=== PATIENT | female | born 1940 | race American Indian/Alaskan Native ===

== ENCOUNTER 2017-03-19 11:10 | Emergency (ER) | payer MEDICARE, OTHER ==
--- NOTE | 2017-03-19 14:18 | ED PDOC ---
Arrival/HPI - General Chief Complaint: Upper Extremity Problem/Injury Time Seen by Provider: 03/19/17 14:13 Historian: Patient - History of Present Illness Narrative History of Present Illness (Text): 03/19/17 14:15 76-year-old female presents today with right sided pain has been ongoing since 2016. Patient claims that in 2016 she had a fall injuring her shoulder and side. Patient states she has had surgery on her shoulder and is still having pain and swelling to the shoulder, ribs, abdomen. no cp or sob. no vomiting/ diarrhea. pt states over the past 3-4 days she noticed a new pain along the anterior aspect of the chest. pt c/o right sided abdominal pain. denies urinary symptoms. no medications taken for pain at home. pt denies dizziness or weakness. no other complaints. Time/Duration: Other (4 days) Quality: Pressure, Tightness Severity Level: 4 Past Medical History - Provider Review Nursing Documentation Reviewed: Yes - Travel History Have you recently traveled outside [place] w/in the past 3 mons?: No - Tetanus Immunization Tetanus Immunization: Unknown - Cardiac Hx Hypertension: Yes - Endocrine/Metabolic Hx Diabetes Mellitus Type 1: Yes - Psychiatric Hx Substance Use: No Family/Social History - Physician Review Nursing Documentation Reviewed: Yes Family/Social History: Unknown Family HX Smoking Status: Never Smoked Hx Alcohol Use: No Hx Substance Use: No Allergies/Home Meds Allergies/Adverse Reactions: Allergies No Known Allergies Allergy (Verified 03/19/17 14:02) Home Medications: Home Meds Medication Instructions Recorded Confirmed Carvedilol [Coreg] 03/19/17 Gabapentin [Neurontin] 400 mg PO 03/19/17 GlipiZIDE [Glucotrol] 03/19/17 Nisoldipine 20 mg PO 03/19/17 Review of Systems - Review of Systems Constitutional: absent: Fatigue, Fevers Respiratory: absent: SOB, Cough Cardiovascular: Chest Pain. absent: Palpitations Gastrointestinal: Abdominal Pain. absent: Constipation, Diarrhea, Nausea, Vomiting Genitourinary Female: absent: Dysuria, Frequency, Hematuria Musculoskeletal: absent: Arthralgias Skin: absent: Rash, Pruritis Neurological: absent: Headache, Dizziness Psychiatric: absent: Anxiety, Depression Physical Exam Vital Signs Reviewed: Yes Vital Signs Temp Pulse Resp BP Pulse Ox 03/19/17 19:03 71 18 125/69 97 03/19/17 16:00 98.0 F 75 18 127/73 97 Temperature: Afebrile Blood Pressure: Normal Pulse: Regular Respiratory Rate: Normal Appearance: Positive for: Well-Appearing, Non-Toxic, Comfortable Pain Distress: None Mental Status: Positive for: Alert and Oriented X 3 - Systems Exam Head: Present: Atraumatic Mouth: Present: Moist Mucous Membranes Nose (Internal): Present: Normal Inspection Neck: Present: Normal Range of Motion Respiratory/Chest: Present: Clear to Auscultation, Good Air Exchange. No: Respiratory Distress, Accessory Muscle Use, Wheezes, Rhonchi, Tachypneic Cardiovascular: Present: Regular Rate and Rhythm. No: Murmurs Abdomen: Present: Tenderness (+ right sided upper abd tenderness), Normal Bowel Sounds. No: Distention, Peritoneal Signs, Rebound, Guarding Back: Present: Normal Inspection, Paraspinal Tenderness (right sided thoracic paraspinal tenderness). No: CVA Tenderness, Midline Tenderness Upper Extremity: Present: Normal ROM, NORMAL PULSES, Tenderness (right shoulder ; + ttp over anterior aspect of shoulder; ), Neurovascularly Intact. No: Erythema Neurological: Present: GCS=15, Speech Normal Skin: Present: Warm, Dry, Normal Color. No: Rashes Psychiatric: Present: Alert, Oriented x 3 Medical Decision Making ED Course and Treatment: 03/19/17 21:07 pt with chest pain x 4 days; vitals stable cbc; wnl cmp; wnl trop: wnl ekg; sinus bradycardia with first-degree AV block at [address] elevations QTC 405 cxr no infiltrate. no effusion UA; + leukocytes, CT abd/pelvis; FINDINGS: LOWER THORAX: Unremarkable. LIVER: 1.2 centimeter low-attenuation lesion at the mid liver dome image 40 series 3 not fully characterized in this noncontrast study. The liver is mildly enlarged. GALLBLADDER AND BILE DUCTS: No evidence of acute cholecystitis. The biliary tree is not dilated. PANCREAS: Unremarkable. No gross lesion or ductal dilatation. SPLEEN: Unremarkable. ADRENALS: Unremarkable. No mass. KIDNEYS AND URETERS: Unremarkable. No hydronephrosis. No solid mass. VASCULATURE: Unremarkable. No aortic aneurysm. BOWEL: Colonic diverticulosis are noted without evidence of diverticulitis. No evidence of bowel obstruction. APPENDIX: Unremarkable. Normal appendix. PERITONEUM: Unremarkable. No free fluid. No free air. LYMPH NODES: Unremarkable. No enlarged lymph nodes. BLADDER: The bladder is not distended therefore cannot be fully evaluated in this study. REPRODUCTIVE: The uterus is slightly prominent in size for the patient's age may contains fibroids. BONES: No acute fracture. OTHER FINDINGS: Small bilateral fat containing inguinal hernias larger on the left. IMPRESSION: No evidence of cholecystitis, appendicitis or pancreatitis. No evidence of nephrolithiasis or hydronephrosis. Colonic diverticulosis without evidence of diverticulitis. 1.2 centimeter low-attenuation lesion at the right liver lobe not fully characterized in this noncontrast study. If indicated further assessment by ultrasound may be obtained. asa po tramadol given for pain rocephin given for UTI pt reassessment; pt non toxic well appearing; no distress. stable vitals. case discussed with Dr. treadwell; accepts admission will Admit observational status to Tele for chest pain r/o acs. impression; chest pain, abdominal pain, UTI Admit observational status to tele; Dr. treadwell - Lab Interpretations Lab Results: 03/19/17 15:33 03/19/17 15:33 Lab Results 03/19/17 16:48: Urine Color Yellow, Urine Appearance Turbid, Urine pH 5.5, Ur Specific [place] >= 1.030, Urine Protein Negative, Urine Glucose (UA) Negative, Urine Ketones Trace H, Urine Blood Negative, Urine Nitrate Negative, Urine Bilirubin Negative, Urine Urobilinogen 0.2, Ur Leukocyte Esterase Small H, Urine RBC Negative, Urine WBC 10 - 15, Ur Epithelial Cells 10 - 12, Urine Bacteria Few 03/19/17 15:33: WBC 8.5, RBC 4.28, Hgb 12.0, Hct 37.9, MCV 88.6, MCH 28.0, MCHC 31.7, RDW 13.7, Plt Count 191, MPV 10.8, Gran % 52.6, Lymph % (Auto) 38.2 H, [place] % (Auto) 5.4, Eos % (Auto) 3.4, Baso % (Auto) 0.4, Gran # 4.45, Lymph # ( Auto) 3.2, [place] # (Auto) 0.5, Eos # (Auto) 0.3, Baso # (Auto) 0.03 03/19/17 15:33: Sodium 144, Potassium 4.2, Chloride 104, Carbon Dioxide 31, Anion Gap 14, BUN 15, Creatinine 0.9, Est GFR ( Amer) > 60, Est GFR (Non- Af Amer) > 60, Random Glucose 175 H, Calcium 10.3, Total Bilirubin 0.2, AST 24, ALT 28, Alkaline Phosphatase 67, Lactate Dehydrogenase 398, Total Creatine Kinase 57, Troponin I < 0.01, Total Protein 6.7, Albumin 3.8, Globulin 2.9, Albumin/Globulin Ratio 1.3 - RAD Interpretation Radiology Orders: 03/19/17 14:50 ABD & PELVIS W/O PO OR IV CONT [CT] Stat CHEST TWO VIEWS (PA/LAT) [RAD] Stat - Medication Orders Current Medication Orders: Discontinued Medications Aspirin (Aspirin) 325 mg PO STAT STA Stop: 03/19/17 17:48 Last Admin: 03/19/17 18:42 Dose: 325 mg Tramadol HCl (Ultram) 50 mg PO STAT STA Stop: 03/19/17 19:04 Last Admin: 03/19/17 19:22 Dose: 50 mg [facility] Pain Assessment Document 03/19/17 19:22 [place] (Rec: 03/19/17 19:23 [place] [facility] [id number] Pain Reassessment Is this a pain reassessment? No Sleep Is patient sleeping during reassessment? No Presence of Pain Presence of Pain No Pain Scale Used Pain Scale Used Numeric Location Pain Location Body Site Back Description Intensity of Pain at present 5 Disposition/Present on Arrival - Present on Arrival Any Indicators Present on Arrival: No History of DVT/PE: No History of Uncontrolled Diabetes: No Urinary Catheter: No History of Decub. Ulcer: No History Surgical Site Infection Following: None - Disposition Have Diagnosis and Disposition been Completed?: Yes Diagnosis: Chest pain, Abdominal pain, UTI (urinary tract infection) Disposition: HOSPITALIZED Disposition Time: 17:00 Patient Plan: Observation Condition: FAIR Discharge Instructions (ExitCare): Chest Pain (ED) Forms: [employer] (Portuguese)
[2017-03-19 15:50] LABS: BASO # 0.03 K/mm3 (0.0-2.0); BASO % 0.4 % (0.0-3.0); EOS # 0.3 (0.0-0.7); EOS % 3.4 % (1.5-5.0); GRAN # 4.45 (1.4-6.5); GRAN % 52.6 % (50.0-68.0); LYMPH # 3.2 (1.2-3.4); LYMPH % 38.2 % (22.0-35.0); MEAN CELL VOLUME 88.6 fl (80.0-105.0); MEAN CORPUSCULAR HGB CONC 31.7 g/dl (31.0-37.0); MEAN PLATELET VOLUME 10.8 fl (7.0-11.0); MONO # 0.5 (0.1-0.6); MONO % 5.4 % (1.0-6.0); RBC 4.28 10^6/uL (3.5-6.1); RED CELL DISTRIBUTION WIDTH 13.7 % (11.5-14.5); WHITE BLOOD COUNT 8.5 10^3/ul (4.5-11.0)
[2017-03-19 16:01] LABS: ALB/GLOB RATIO 1.3 (1.1-1.8); ALBUMIN 3.8 g/dL (3.0-4.8); ALT/SGPT 28 U/L (7-56); AST/SGOT 24 U/L (14-36); BLOOD UREA NITROGEN 15 mg/dL (7-21); CALCIUM 10.3 mg/dL (8.4-10.5); GFR AFRICAN-AMERICAN > 60; GFR NON-AFRICAN AMERICAN > 60
[2017-03-19 16:12] LABS: TROPONIN I < 0.01 ng/mL
--- NOTE | 2017-03-19 16:50 | CT ---
PROCEDURE: CT Abdomen and Pelvis without intravenous contrast HISTORY: upper/right sided abdominal pain COMPARISON: None. TECHNIQUE: Axial and reformatted coronal and sagittal CT images of the abdomen and pelvis were obtained without IV or oral contrast administration.. Contrast Dose: 0 Radiation dose: Total exam DLP = 1083.68 mGy-cm. This CT exam was performed using one or more of the following dose reduction techniques: Automated exposure control, adjustment of the mA and/or kV according to patient size, and/or use of iterative reconstruction technique. FINDINGS: LOWER THORAX: Unremarkable. LIVER: 1.2 centimeter low-attenuation lesion at the mid liver dome image 40 series 3 not fully characterized in this noncontrast study. The liver is mildly enlarged. GALLBLADDER AND BILE DUCTS: No evidence of acute cholecystitis. The biliary tree is not dilated. PANCREAS: Unremarkable. No gross lesion or ductal dilatation. SPLEEN: Unremarkable. ADRENALS: Unremarkable. No mass. KIDNEYS AND URETERS: Unremarkable. No hydronephrosis. No solid mass. VASCULATURE: Unremarkable. No aortic aneurysm. BOWEL: Colonic diverticulosis are noted without evidence of diverticulitis. No evidence of bowel obstruction. APPENDIX: Unremarkable. Normal appendix. PERITONEUM: Unremarkable. No free fluid. No free air. LYMPH NODES: Unremarkable. No enlarged lymph nodes. BLADDER: The bladder is not distended therefore cannot be fully evaluated in this study. REPRODUCTIVE: The uterus is slightly prominent in size for the patient's age may contains fibroids. BONES: No acute fracture. OTHER FINDINGS: Small bilateral fat containing inguinal hernias larger on the left. IMPRESSION: No evidence of cholecystitis, appendicitis or pancreatitis. No evidence of nephrolithiasis or hydronephrosis. Colonic diverticulosis without evidence of diverticulitis. 1.2 centimeter low-attenuation lesion at the right liver lobe not fully characterized in this noncontrast study. If indicated further assessment by ultrasound may be obtained.
[2017-03-19 17:00] LABS: PH,URINE 5.5 (4.7-8.0); URINE BILIRUBIN NEGATIVE (NEGATIVE); URINE BLOOD NEGATIVE (NEGATIVE); URINE GLUCOSE (UA) NEGATIVE (NEGATIVE); URINE LEUKOCYTE ESTERASE SMALL Leu/uL (NEGATIVE); URINE NITRATE NEGATIVE (NEGATIVE); URINE PROTEIN NEGATIVE mg/dL (<30 mg/dL); URINE UROBILINOGEN 0.2 E.U./dL (<1 E.U./dL)
[2017-03-19 17:02] LABS: URINE APPEARANCE TURBID (CLEAR); URINE COLOR YELLOW (YELLOW)
[2017-03-19 17:06] LABS: URINE BACTERIA FEW (NEG); URINE RBC NEGATIVE /hpf (0-2)
--- NOTE | 2017-03-19 18:23 | RAD ---
HISTORY: Chest pain. COMPARISON: No prior. TECHNIQUE: Chest PA and lateral FINDINGS: LUNGS: No active pulmonary disease. PLEURA: No significant pleural effusion identified. No pneumothorax apparent. CARDIOVASCULAR: No radiographic findings to suggest acute or significant cardiovascular disease. OSSEOUS STRUCTURES: No significant abnormalities. VISUALIZED UPPER ABDOMEN: Normal. OTHER FINDINGS: None. IMPRESSION: No active disease.
[2017-03-19] MEDS ORDERED: cefTRIAXone 1 gm 1 GM/100 ML BAG IVPB STA (21:05)
[2017-03-20 08:56] VITALS: BP 153/70; PULSE 59; RESP 18; TEMP 98; O2SAT 99
[2017-03-20 09:04] LABS: HDL CHOLESTEROL 49 mg/dL (29-60)
[2017-03-20 09:15] LABS: LDL CHOLESTEROL 116 mg/dL (0-129)
[2017-03-20 09:56] LABS: TROPONIN I < 0.01 ng/mL
[2017-03-20] MEDS ORDERED: Lidocaine 5% Patch TD SCH (10:00)
--- NOTE | 2017-03-20 10:02 | CARD ---
APPROVED REPORT EKG Measurement Heart [id number] <Conclusion> Sinus bradycardia with 1st degree AV block NSSTW changes
--- NOTE | 2017-03-20 11:38 | US ---
HISTORY: Abnormal CT COMPARISON: CT abdomen and pelvis from 03/19/2017 TECHNIQUE: Sonographic evaluation of the abdomen. FINDINGS: LIVER: Measures 15.8 cm. Normal echogenicity of the liver parenchyma. There is a 1.4 x 1.3 x 1.3 cm simple cyst in the right hepatic lobe. . No intrahepatic bile duct dilatation. GALLBLADDER: There are no gallstones, wall thickening or pericholecystic fluid. COMMON BILE DUCT: Measures 6.3 mm. No stones. No dilatation. PANCREAS: Unremarkable as visualized. No mass. No ductal dilatation. RIGHT KIDNEY: Measures 9.2cm. Normal echogenicity. No calculus, mass, or hydronephrosis. LEFT KIDNEY: Measures 8.9cm. Normal echogenicity. No calculus, mass, or hydronephrosis. SPLEEN: Normal in size and contour. No mass. AORTA: No aneurysmal dilatation. IVC: Unremarkable. OTHER FINDINGS: None. IMPRESSION: 1. 1.4 cm simple cyst in the right hepatic lobe. 2. No cholelithiasis.
--- NOTE | 2017-03-20 12:25 | HP ---
The patient was seen and examined at the bedside on 03/19/2017. I am doing H and P for 03/19/2017. CHIEF COMPLAINT: Chest pain. HISTORY OF PRESENT ILLNESS: Ms. Leon Kerns is a 76-year-old female with past medical history of multiple problems, who came with right-sided chest pain since 2016, and patient claims that in 2016, she had a fall, injuring her right shoulder and side. Patient states that she had surgery on her shoulder and is still having pain and swelling on the shoulder, ribs, abdomen. No nausea, vomiting, or diarrhea. Now, past 3 to 4 days, she noted new pain along with anterior aspect of the chest. Patient is complaining of right-sided abdominal pain. No urinary symptoms. No dysuria. Denies dizziness or weakness. PAST MEDICAL HISTORY: As above, hypertension and diabetes mellitus type 1. FAMILY HISTORY: Father and mother noncontributory. HABITS: Never smoke. No drugs. No ethanol. ALLERGIES: PATIENT IS NOT ALLERGIC WITH ANY MEDICATIONS. HOME MEDICATIONS: Carvedilol, Neurontin, and Glucotrol. REVIEW OF SYSTEMS: The patient is seen and examined on the bedside, in the emergency room. No fatigue or fever. No nausea, vomiting, or diarrhea. No shortness of breath. No coughing. Having chest pain, but not palpitation. No constipation, diarrhea, nausea, or vomiting. No dysuria. No frequency. No hematuria. No arthralgia. No fever. No rash. No pruritus. No headache or dizziness. No anxiety or depression. PHYSICAL EXAMINATION: VITAL SIGNS: Temperature 98.0, pulse 75, respiratory rate 18, blood pressure 127/73, pulse oximetry 97%. HEENT: Head: Normocephalic and atraumatic. Eyes: PERRLA. Extraocular muscles intact. Conjunctivae clear. Nose patent. Mucous membrane moist. NECK: Supple. No carotid bruit. No JVD or thyromegaly. CHEST: Bilaterally symmetrical. HEART: S1, S2 positive. LUNGS: Clear to auscultation. ABDOMEN: Soft. Bowel sounds positive. No organomegaly. EXTREMITIES: No edema, no cyanosis. NEUROLOGIC: The patient is awake, alert. Moving all 4 extremities. No focal deficits. LABORATORY DATA: White blood cell is 8.5, hemoglobin 12.0, hematocrit 37.9, platelets 191. Sodium 144, potassium 4.2. BUN 15, creatinine 0.9. Glucose 175. ASSESSMENT AND PLAN: Ms. Leon Kerns is a 76-year-old lady with diabetes mellitus, hypertension, came with chest pain, abdominal pain, urinary tract infection, hypertension. CAT scan of the abdomen and pelvis done. According to radiologist, no evidence of cholecystitis, appendicitis, pancreatitis. No evidence of nephrolithiasis or hydronephrosis. The patient has chronic diverticulosis without evidence of diverticulitis. A1.2 cm low attenuation lesion in the right liver lobe. Can be assessed with ultrasound. We will do ultrasound. Chest x-ray is done. No active disease. We did cardiac enzymes x2, less than 0.01 x2. Ketones positive in the urine. Cardiology consult called with Dr. Iglesias. Patient is given aspirin, ceftriaxone, and tramadol in emergency. Discussion done with the emergency physician. Repeat labs. Mary Goss MD MTDEstephania
--- NOTE | 2017-03-20 22:01 | CON ---
DATE: REASON FOR CONSULTATION: Chest pain, cardiac evaluation, history of hypertension. BRIEF CLINICAL HISTORY: A 76-year-old obese female with a past medical history significant for hypertension for many years. She came in with sharp pain on the right side of the chest with tenderness and then whole right side of the body. Admitted here to rule out CAD. Patient is complaining of pain in upper abdomen, right side of the chest, right upper and lower extremity. History of right shoulder surgery; since then, patient gets pain off and on. PAST MEDICAL HISTORY: Significant for hypertension. SOCIAL HISTORY: Denies any history of alcohol abuse. CURRENT MEDICATION: Patient is taking Coreg CR 80 mg daily, enalapril 10 mg daily, Neurontin 400 mg daily and glipizide. REVIEW OF SYSTEMS: As per HPI. FAMILY HISTORY: Noncontributory. PHYSICAL EXAMINATION: VITAL SIGNS: Temperature afebrile, heart rate 59, blood pressure 153/70. HEENT: PERRLA. Extraocular muscles are intact. NECK: Supple. No carotid bruit or thyromegaly. CHEST: Clear to auscultation. HEART: S1 and S2, regular. ABDOMEN: Soft. EXTREMITIES: Clubbing and cyanosis negative. LABORATORY DATA: Blood workup as follows: WBC 8.5, hemoglobin 12, hematocrit 37.9, platelet count 191. Chemistry shows sodium 144, potassium 4.0, chloride of 104, carbon dioxide 31, anion gap of 15, . Troponin is 0.01, 0.01. Triglycerides 112, cholesterol 205, LDL 116, HDL 49. EKG shows normal sinus, first degree AV block. No acute ST-T wave changes noted. IMPRESSION AND PLAN: Atypical chest pain, musculoskeletal tenderness on the right side of the chest, diabetes mellitus, hypertension, hyperlipidemia, obesity. Given multiple risk factor for coronary artery disease, suggest stress test and echo as an outpatient. Arrangement has been made to have a stress test done as an outpatient in 1 week. Patient okay to be discharged. We will inform Dr. Goss. Thank you, Dr. Goss, for providing us the opportunity in taking care of Ms. Leon Madden. Sharon Justin MD
--- NOTE | 2017-03-21 23:51 | DS ---
CHIEF COMPLAINT: Chest pain. HISTORY OF PRESENT ILLNESS: Ms. Saumya Madden is a 76-year-old female with past medical history of multiple medical problems, came to the emergency room with right-sided chest pain and patient is complaining that she had a fall, injury in the right shoulder and right side. Patient states that she had surgery on her right shoulder and still having pain and swelling on the shoulder, ribs, and abdomen. No nausea, vomiting, or diarrhea. No hematuria or hematochezia. No swelling of the legs. Patient was admitted. CAT scan of the abdomen and pelvis done. Abdominal ultrasound was done. Seen by the insurance and benefits clerk, Dr. Iglesias and Dr. Justin, cleared for discharge and followup stress test as outpatient. Continue home medications. PAST MEDICAL HISTORY: As above, hypertension, diabetes mellitus type 1. FAMILY HISTORY: Father and mother, noncontributory. HABITS: No smoking. No drugs. No ethanol. ALLERGIES: PATIENT IS NOT ALLERGIC WITH ANY MEDICATION. HOME MEDICATIONS: Carvedilol, Neurontin, and Glucotrol. REVIEW OF SYSTEMS: Patient is seen and examined at the bedside on 03/20/2017, looking comfortable. Chest pain is better. Complaining of pain that is here and there in the shoulders, hips, like nonspecific for cardiac. Patient has arthritis. No hematuria or hematochezia. No fever. No chills. PHYSICAL EXAMINATION: VITAL SIGNS: Temperature 98, pulse 59, blood pressure 150/70, respiratory rate 18. HEENT: Head: Normocephalic and atraumatic. Eyes: PERRLA. Extraocular muscles intact. Conjunctivae clear. Nose patent. Mucous membrane moist. NECK: Supple. No carotid bruit. No JVD or thyromegaly. CHEST: Bilaterally symmetrical. HEART: S1 and S2, positive. LUNGS: Clear to auscultation. ABDOMEN: Soft. Bowel sounds present. No organomegaly. EXTREMITIES: No edema. No cyanosis. NEUROLOGIC: Patient is awake, alert. Moving all four extremities. No focal deficits. LABORATORY DATA: White blood cells 8.5, hemoglobin 12.0, hematocrit 37.9, platelets 191, glucose 234, 205. ASSESSMENT AND PLAN: Ms. Saumya Madden is a 76-year-old lady with hypercholesterolemia; hyperglycemia; diabetes mellitus, uncontrolled, hemoglobin A1c is 8.2; proteinuria; ketonuria. Patient has a history of hypertension, history of coronary artery disease, came with chest pain. According to insurance and benefits clerk, it looks like atypical chest pain, musculoskeletal on tenderness, history of diabetes mellitus uncontrolled, hemoglobin A1c is high. There were multiple risk factors for coronary artery disease, obesity. Suggested stress test and echo as outpatient. Arrangements have been made to have stress test done as outpatient in one week. According to Cardiology, patient is okay to discharge, we will discharge the patient from ER. Continue home medication. We will follow up. Mary Goss MD
== END 2017-03-20 14:30 | disposition short-term general hospital (02) ==
LOC: EDBD → ED 11:10 → UNDOADMOB 19:58 → ERH 19:58 → ED 03-20 14:30
DX: R07.9 Chest pain, unspecified (principal); R10.9 Unspecified abdominal pain; N39.0 Urinary tract infection, site not specified; I10 Essential (primary) hypertension; E11.9 Type 2 diabetes mellitus without complications
CPT/HCPCS: 71046; 74176; 76700; 80053; 80061; 81001; 82550; 82948; 83036; 83615; 84484; 85025; 87086; 93005; 96365; 99284; J0696